=== PATIENT | male | born 1950 | race Caucasian/White ===

== ENCOUNTER 2017-10-18 21:07 | Emergency (ER) | payer MEDICARE, OTHER ==
[2017-10-18] MEDS ORDERED: diazePAM 5 MG TABLET PO STA (21:24)
[2017-10-18] MEDS ORDERED: oxyCOD/ACETAMIN 5 MG/325 MG TABLET PO STA (21:37)
[2017-10-18] MEDS ORDERED: oxyCOD/ACETAMIN 5 MG/325 MG TABLET PO ONE (21:49)
[2017-10-18] MEDS ORDERED: LIDOCAINE PATCH 5% TOP SCH (22:00)
[2017-10-18] MEDS ORDERED: diazePAM 5 MG TABLET PO ONE (22:15)
[2017-10-18] MEDS ORDERED: LIDOCAINE PATCH 5% TOP ONE (22:16)
--- NOTE | 2017-10-18 22:19 | XRAY Preliminary Report ---
Exam: XR RIBS W/PA CHEST RT IMPRESSION: 1. Blunting of the left costophrenic angle representing trace effusion versus pleural thickening. 2. Linear bibasilar atelectasis or scarring. 3. No acute bony abnormality is evident. [facility] SITE ID: [id number]
--- NOTE | 2017-10-18 22:22 | XRAY Report ---
EXAM: RIGHT RIB RADIOGRAPHY EXAM DATE: 10/18/2017 10:01 PM. CLINICAL HISTORY: Posterior rib pain after leaning forward. COMPARISON: Chest radiograph 11/21/2015. TECHNIQUE: 1 view of the chest and 2 views of the ribs. FINDINGS: Bones: A radiopaque marker overlies the right posterior 12th rib. Thoracic spine DISH. No fracture or bone lesion. Lungs: Linear bibasilar opacities representing atelectasis or scarring. No focal consolidation or val dence of edema. Blunting of the left costophrenic angle. No pneumothorax. Mediastinum: Heart size is normal. The aorta is mildly tortuous, as before. Other: None. IMPRESSION: 1. Blunting of the left costophrenic angle representing trace effusion versus pleural thickening. 2. Linear bibasilar atelectasis or scarring. 3. No acute bony abnormality is evident. [facility] Referring Provider Line: [phone] SITE ID: [id number]
--- NOTE | 2017-10-18 22:42 | ED Physician Documentation ---
PD HPI TRUNK INJURY - Stated complaint Stated Complaint: SOA/RIB PX - Chief complaint Chief Complaint: Resp - History obtained from History obtained from: Patient, Family - History of Present Illness Location: Posterior chest, Right chest Type of injury: Other Timing - onset: Today Timing - details: Abrupt onset, Still present Quality: Pain, Spasm Worsened by: Moving, Palpating Associated symtptoms: No: Weakness, Numbness, Tingling, Discoloration Contributing factors: No: Anticoagulated Where injury occured: Home Similar symptoms before: No diagnosis Recently seen: Not recently seen - Additional information Additional information: Patient is a 67 year old male with no significant past medical history who is presenting to the emergency department for right posterior back and rib pain. Patient states that about a week ago he strained his left ribs working with 50lb bags. patient states today he was bending over a fender, reaching our with his right arm when he developed severe, right posterior rib pain. Patient states that he feels like his rib is dislocated. Review of Systems Constitutional: denies: Fever, Chills Eyes: reports: Reviewed and negative Ears: reports: Reviewed and negative Nose: reports: Reviewed and negative Throat: reports: Reviewed and negative Cardiac: reports: Chest pain / pressure. denies: Palpitations, Pedal edema Respiratory: reports: Dyspnea. denies: Cough, Wheezing GI: denies: Nausea, Vomiting : reports: Reviewed and negative Skin: denies: Rash, Lesions, Abrasion (s) Musculoskeletal: reports: Back pain, Extremity pain Neurologic: denies: Generalized weakness, Focal weakness, Numbness Immunocompromised: denies: Immunocompromised PD PAST MEDICAL HISTORY - Past Medical History Respiratory: Sleep apnea - Past Surgical History Past Surgical History: Yes - Present Medications Home Medications: Ambulatory Orders Medication Instructions Recorded Confirmed Diazepam [Valium] 10 mg PO DAILY #14 tablet 10/18/17 Lidocaine Patch 5% [Lidoderm Patch] 1 each TOP DAILY #10 patch 10/18/17 tiZANidine [Zanaflex] 4 mg PO Q8H 10/18/17 10/18/17 - Allergies Allergies/Adverse Reactions: Allergies Allergy/AdvReac Type Severity Reaction Status Date / Time No Known Drug Allergies Allergy Verified 10/18/17 21:14 - Social History Does the pt smoke?: No Smoking Status: Never smoker Does the pt drink ETOH?: No Does the pt have substance abuse?: No - Immunizations Immunizations are current?: Yes Immunizations: TDAP current <10years - POLST Patient has POLST: No PD ED PE NORMAL - Vitals Vital signs reviewed: Yes - General General: Alert and oriented X 3, No acute distress - HEENT HEENT: Atraumatic, PERRL, Moist mucous membranes - Neck Neck: Supple, no meningeal sign, No JVD - Cardiac Cardiac: RRR, No murmur - Respiratory Respiratory: No respiratory distress, Clear bilaterally - Abdomen Abdomen: Soft, Non tender, Non distended - Derm Derm: Normal color, Warm and dry, No rash - Extremities Extremities: No deformity, Normal ROM s pain, No edema - Neuro Neuro: Alert and oriented X 3, No motor deficit, No sensory deficit, Normal speech PD ED PE EXPANDED - Back Back: Soft tissue tenderness (tenderness to palpation of the sub scapulary region, no gross deformity) Results - Vitals Vitals: Vital Signs - 24 hr 10/18/17 10/18/17 10/18/17 21:11 22:09 22:54 Temperature 36.7 C 36.8 C Heart Rate 73 73 84 Respiratory 18 18 21 Rate Blood Pressure 143/88 H 128/86 H 123/72 O2 Saturation 98 100 95 Oxygen O2 Source Room air - EKG (time done) 2112 Rate: Rate (enter#) (71) Rhythm: NSR [place]: Normal Intervals: Normal [place] QRS: Normal Ischemia: Normal ST segments Compare to prior EKG: Old EKG unavailable Computer interpretation: Agree with computer - Rads (name of study) chest Radiology: Final report received (bibasilar atelectasis, no bony abnormality) PD MEDICAL DECISION MAKING - ED course Complexity details: reviewed old records, reviewed results, re-evaluated patient , considered differential, d/w patient, d/w family ED course: Patient was seen and examined at bedside. ekg was performed in triage and was normal sinus. imaging was ordered. patient was treated with valium, lidoderm and a percocet. Patient was sent for imaging. When patient returned from imaging the results were reviewed. there was no acute abnormalities. patient' s symptoms were likely msk in nature. Patient and family were made aware of the findings and were stable for discharge with outpatient follow up. Departure - Departure Disposition: 01 Home, Self Care Clinical Impression: Muscle strain of chest wall Condition: Good Instructions: ED Sprain Thoracic Spine Follow-Up: LONNIE JENKINS [Primary Care Provider] - Prescriptions: Diazepam [Valium] 10 mg PO DAILY #14 tablet Lidocaine Patch 5% [Lidoderm Patch] 1 each TOP DAILY #10 patch Comments: Your diagnostics today were within normal limits. there were no major abnormalities on your ekg or chest x-ray. You should continue with the pain management and make sure you take deep breaths. You should followup with your doctor early next week if your symptoms persist. You may return to the emrgency department at any time for new, worsening or uncontrollable symptoms. Discharge Date/Time: 10/18/17 23:02
[2017-10-18 22:55] VITALS: BP 123/72
[2017-10-18] MEDS ORDERED: oxyCODONE/ACET 5/325 Prepack 4 PO STA (22:59)
[2017-10-18] MEDS ORDERED: oxyCODONE/ACET 5/325 Prepack 4 PO ONE (23:05)
== END 2017-10-18 23:02 | disposition home or self-care (01) ==
LOC: ED 21:07
DX: S29.011A Strain of muscle and tendon of front wall of thorax, initial encounter (principal); X50.0XXA Overexertion from strenuous movement or load, initial encounter
CPT/HCPCS: 71101; 93005; 99283; A9270

== ENCOUNTER 2017-10-21 13:11 | Outpatient (CLI) | payer MEDICARE, OTHER | END 2017-10-21 13:12 | disposition home or self-care (01) | LOC: SC 13:11 | PROVIDERS: ATTEND Nurse Practitioner Family | DX: G47.33 Obstructive sleep apnea (adult) (pediatric) (principal) | CPT/HCPCS: 99214; G0463; 99212 ==

== ENCOUNTER 2017-12-22 09:45 | Outpatient (CLI) | payer MEDICARE, OTHER | END 2017-12-22 09:46 | disposition home or self-care (01) | LOC: SC 09:45 | PROVIDERS: ATTEND Nurse Practitioner Family | DX: G47.33 Obstructive sleep apnea (adult) (pediatric) (principal) | CPT/HCPCS: 99214; G0463; 99212 ==

== ENCOUNTER 2019-01-12 14:28 | Outpatient (CLI) | payer MEDICARE, OTHER | END 2019-01-12 14:29 | disposition home or self-care (01) | LOC: SC 14:28 | PROVIDERS: ATTEND Nurse Practitioner Family | DX: G47.33 Obstructive sleep apnea (adult) (pediatric) (principal) | CPT/HCPCS: 99214; G0463; 99212 ==

== ENCOUNTER 2019-03-30 15:03 | Outpatient (CLI) | payer MEDICARE, OTHER | END 2019-03-30 15:04 | disposition home or self-care (01) | LOC: SC 15:03 | PROVIDERS: ATTEND Nurse Practitioner Family | DX: G47.33 Obstructive sleep apnea (adult) (pediatric) (principal) | CPT/HCPCS: 99214; G0463; 99212 ==

== ENCOUNTER 2019-05-16 08:43 | Outpatient (CLI) | payer MEDICARE, OTHER | END 2019-05-16 08:44 | disposition home or self-care (01) | LOC: SC 08:43 | PROVIDERS: ATTEND Nurse Practitioner Family | DX: G47.33 Obstructive sleep apnea (adult) (pediatric) (principal) | CPT/HCPCS: 99214; G0463; 99212 ==

== ENCOUNTER 2019-07-18 08:38 | Outpatient (CLI) | payer MEDICARE, OTHER ==
[2019-07-18 09:43] VITALS: BP 116/60
--- NOTE | 2019-07-18 09:43 | SLEEP CARE CONSULTATION ---
Information from patient questionnaire entered by Nasreen Alvarado. I have reviewed and concur with the information entered by Nasreen Alvarado. This document represents the service I personally performed and the decisions made by me, Krystal Raymond, RN, MSN, [employer]. History of Present Illness Previous diagnosis: Moderate, Obstructive Sleep Apnea-Hypopnea Syndrome AHI: 28.2 Reason for CPAP/BiPAP follow up: other (2 month) Accompanied by: Spouse Equipment type: CPAP Equipment obtained from: [facility] Mask style: Nasal (Sleepweaver) Backup mask available: Yes Last cushion change: a month ago HPI additional information: The pressure reduction reduced aerophagia that seems to happen now only 2-3 times a month. He has also noted improved restfulness that sustains through the evening now and not falling asleep on couch. His nasal congestion is better but is not using the saline nasal spray prior to CPAP unless symptomatic which is a couple times a week. The saline nasal spray does seem to reduce nasal congestion and aerophagia symptoms. He has noted less mask leaks with washing mask more often. CPAP Compliance Data - Data Reviewed with Patient Average duration of nightly device use: 8.5 Compliance rate %: 100 (60 days) Current pressure setting (cmH2O): 14-16 Humidity settin Heated hose settin Average residual AHI: 3.3 Average large leak: 2 hrs 11 mins Subjective Patient concerns: reports: aerophagia (less a few times a month), nasal congestion (a few times a week), other (headache - sinus headache that is relieved after up a few hours and blowing his nose. ). denies: mask discomfort, air blowing in eyes, mask leak noise, condensation in mask/hose Observed to snore while using device: No Current pressure setting perceived as: comfortable On therapy, patient: reports: sleeping better, awakening more refreshed, being more awake and alert during the day, more rested overall. denies: drowsiness while driving Initial [place] Sleepiness Scale score: 1 Current [place] Sleepiness Scale score: 1 Allergies and Home Medications Known drug allergies: No Home medication list reviewed: Yes (none) Review of Systems Review of systems same as previous: Yes Physical Exam Blood Pressure: 116/60 Cuff size: long Heart Rate: 64 O2 Saturation: 96 Height: 5 ft 11 in Weight (kg): 205 lb 6.4 oz Weight change since last visit: lost 3 pounds Body Mass Index: 28.6 BMI Classification: Overweight Impression and Plan 1. Obstructive Sleep Apnea-Hypopnea Syndrome, moderate, with good treatment compliance and good apnea control. On CPAP therapy, the patient has better sleep quality and is more rested overall. The pressure reduction reduced residual AHI from 5.5 to 3.3. He has noted improved restfulness since pressure change sustaining through evening. To reduce aerophagia symptoms, I advised him to use his saline nasal spray nightly prior to CPAP as it seems to reduce aerophagia. I will also reduce his autoCPAP pressure slightly to [id number]. He is to contact me if the pressure change is uncomfortable. He is also advised to use the ramp if needed. I also encouraged him to continue washing his mask regularly to reduce mask leaks which reduce residual AHI and change mask every 3 months as shown on supply replacement schedule given. He is encouraged to back to [facility] and use the CPAP to show the whining noise in use not just demonstration of device working as before. His drooling has reduced with increase in humidity. Thus he is going to try a slightly higher humidity to see if any better. Patient's apnea severity and rationale for treatment to reduce apnea, improve sleep quality and reduce cardiovascular and cerebrovascular events was reviewed. I also reviewed the benefit of consistent device use of CPAP for migraines. * Change CPAP pressure to 14-15 cmH2O * Saline nasal spray prior to CPAP nightly. * Increase humidity * Follow up with [facility] re CPAP whining noise. * Notify me if snoring with mask or feeling that the pressure is too much or too little * Attempt to lose weight * Return for follow up in 1 year , or sooner if concerns arise I spent 100% of this 35 minute visit face to face with the patient with greater than 50% of this was spent time counseling the patient and coordination of care.
== END 2019-07-18 08:39 | disposition home or self-care (01) ==
LOC: SC 08:38
PROVIDERS: ATTEND Nurse Practitioner Family
DX: G47.33 Obstructive sleep apnea (adult) (pediatric) (principal)
CPT/HCPCS: 99214; G0463; 99212

== ENCOUNTER 2020-07-23 07:51 | Outpatient (CLI) | payer MEDICARE, OTHER ==
--- NOTE | 2020-07-23 08:52 | SLEEP CARE CONSULTATION ---
Information from patient questionnaire entered by Almaz Jimenez. I have reviewed and concur with the information entered by Almaz Jimenez. This document represents the service I personally performed and the decisions made by , Nichole Byrne ARNP. History of Present Illness Service Date and Time: 07/23/2020 0751 Previous diagnosis: Moderate, Obstructive Sleep Apnea-Hypopnea Syndrome AHI: 28.2 Reason for follow up: annual Equipment type: CPAP Equipment obtained from: Other ([facility]; getting supplies as needed) Mask style: Full face (sleepweaver, cloth full mask) Backup mask available: Yes (old mask) Last cushion change: 1 month to 6 weeks Prior sleep studies: Yes [facility] and [facility] Type of Sleep Study: Polysomnography HPI additional information: LUCINA PRABHAKAR was diagnosed to have moderate, AHI 28.2, obstructive sleep apnea-hypopnea syndrome and returned today with spouse for CPAP therapy annual follow-up. CPAP Compliance Data - Data Reviewed with Patient Average duration of nightly device use: 7 hours 59 minutes Compliance rate %: 100 Current pressure setting (cmH2O): 14-15 Humidity settin Average residual AHI: 2.2 Average large leak: 2 hours 19 minutes 26 seconds Subjective Patient concerns: reports: nasal congestion (over last month; doesn't affect machine use), dry mouth, nose, throat (2-3 times a month, not a problem). denies: aerophagia, mask discomfort, air blowing in eyes, mask leak noise, condensation in mask/hose, epistaxis, other Observed to snore while using device: No Current pressure setting perceived as: comfortable On therapy, patient: reports: sleeping better, awakening more refreshed, being more awake and alert during the day, more rested overall. denies: drowsiness while driving Initial [place] Sleepiness Scale score: 1 Allergies and Home Medications Drug allergies reviewed: Yes (NKDA) Home medication list reviewed: Yes (No changes) Review of Systems Review of systems same as previous: Yes (No changes) Physical Exam Heart Rate: 57 O2 Saturation: 98 Height: 5 ft 11 in Weight: 205 lb Body Mass Index: 28.5 BMI Classification: Overweight Nasal exam: positive: erythema Impression and Plan 1. Obstructive Sleep Apnea-Hypopnea Syndrome, moderate, with good treatment compliance and good apnea control. On CPAP therapy, the patient has better sleep quality and is more rested overall. Patient has large air leaks but he does have a full face sheth and he states it is hard to get a good seal on his face. He also uses a cloth mask and feels that an increase in pressure can help the mask seal better and reduce air leakage. He has good AHI at 2.2. I will increase his pressure range to 14-16 cm H2O to help with the seal. I reviewed with patient to let me know if pressure feel too high, too little or he starts swallowing air. Patient's apnea severity and rationale for treatment to reduce apnea, improve sleep quality and reduce cardiovascular and cerebrovascular events was reviewed. I also reviewed the benefit of consistent device use of CPAP for his migraines. * Change auto CPAP pressure at 14-16 cmH2O * Notify me if snoring with mask or feeling that the pressure is too much or too little * Attempt to lose weight * Call this office if any problems using CPAP * Return for follow up in 1 year, or sooner if concerns arise Visit Type: In Office Time Spent with Patient (minutes): 20 Provider Statement: I spent 100% of the Face to Face Visit with the patient with greater than 50% spent counseling the patient and coordination of care.
== END 2020-07-23 07:52 | disposition home or self-care (01) ==
LOC: SC 07:51
PROVIDERS: ATTEND Nurse Practitioner Family
DX: G47.33 Obstructive sleep apnea (adult) (pediatric) (principal); E66.3 Overweight; Z68.28 Body mass index [BMI] 28.0-28.9, adult
CPT/HCPCS: 99213; G0463; 99212

== ENCOUNTER 2020-12-25 08:00 | Observation (INO) | payer MEDICARE, OTHER ==
[2020-12-25] MEDS ORDERED: SODIUM CHLORIDE 0.9% 1,000 ML IV STA (08:20)
--- NOTE | 2020-12-25 08:34 | ED Physician Documentation ---
History of Present Illness - Stated complaint Stated Complaint: DIZZY - Chief complaint Chief Complaint: Neuro - History obtained from History obtained from: Patient - Additonal information Additional information: 70-year-old man with past medical history of hyperlipidemia, former smoker, presents with 3 discrete presyncopal episodes this morning and one episode while walking of syncope in which he fell into a duran without head trauma. Patient states that he woke up feeling normal and went down to the kitchen and was standing there and felt lightheaded. It went away but then came back 2 more t imes and then as he was crossing his yard he became lightheaded again to the point where he collapsed onto a duran. Denies injury. He was feeling normal yesterday. Of note, he called a nurse line and then was told to come to the emergency room but decided to watch television with his and follow-up with his primary doctor but then experienced left eye blurring of vision lasting for 4-5 minutes and then recurring. This prompted them to drive to the ED. He again noticed peripheral vision loss on the way here that then resolved. denies CP, fever, sob, other neuro deficits. Review of Systems Ten Systems: 10 systems reviewed and negative Constitutional: denies: Fever, Chills Eyes: reports: Loss of vision, Decreased vision Ears: denies: Loss of hearing Cardiac: denies: Chest pain / pressure Respiratory: denies: Dyspnea GI: denies: Vomiting Neurologic: reports: Syncope, LOC (lightheadedness) PD PAST MEDICAL HISTORY - Past Medical History Respiratory: Sleep apnea - Past Surgical History Past Surgical History: Yes - Present Medications Home Medications: Ambulatory Orders Medication Instructions Recorded Confirmed No Known Home Medications 12/25/20 12/25/20 - Allergies Allergies/Adverse Reactions: Allergies Allergy/AdvReac Type Severity Reaction Status Date / Time No Known Drug Allergies Allergy Verified 10/18/17 21:14 - Social History Does the pt smoke?: No Smoking Status: Never smoker Does the pt drink ETOH?: No Does the pt have substance abuse?: No - Immunizations Immunizations are current?: Yes Immunizations: TDAP current <10years - POLST Patient has POLST: No PD ED PE NORMAL - Vitals Vital signs reviewed: Yes - General General: Alert and oriented X 3, No acute distress, Well developed/nourished - HEENT HEENT: Atraumatic, PERRL, EOMI, Moist mucous membranes, Pharynx benign - Neck Neck: Supple, no meningeal sign - Cardiac Cardiac: RRR - Respiratory Respiratory: No respiratory distress, Clear bilaterally - Abdomen Abdomen: Non tender, Non distended - Male Male : Deferred - Rectal Rectal: Deferred - Back Back: No spinal TTP - Derm Derm: Normal color - Extremities Extremities: No deformity, No edema - Neuro Neuro: Alert and oriented X 3, cardiac exercise physiologist 2-12 intact, No motor deficit, No sensory deficit - Psych Psych: Normal mood, Normal affect Results - Vitals Vitals: Vital Signs - 24 hr 12/25/20 12/25/20 12/25/20 08:11 08:52 08:53 Temperature 36.3 C L 36.6 C Heart Rate 72 65 Heart Rate [ 69 Sitting] Heart Rate [ 68 Standing] Heart Rate [ 68 Supine] Respiratory 18 12 Rate Blood Pressure 131/72 H 128/117 H Blood Pressure 139/90 H [Sitting] Blood Pressure 120/70 [Standing] Blood Pressure 128/117 H [Supine] O2 Saturation 99 100 12/25/20 09:35 Temperature Heart Rate 65 Heart Rate [ Sitting] Heart Rate [ Standing] Heart Rate [ Supine] Respiratory 18 Rate Blood Pressure 136/83 H Blood Pressure [Sitting] Blood Pressure [Standing] Blood Pressure [Supine] O2 Saturation 99 Oxygen O2 Source Room air - EKG (time done) 0809 Rate: Rate (enter#) (69) Rhythm: NSR [place]: Normal Intervals: Normal IN QRS: Normal Ischemia: Normal ST segments - Labs Labs: Laboratory Tests 12/25/20 12/25/20 12/25/20 08:25 08:25 08:25 WBC 6.0 RBC 4.81 Hgb 14.8 Hct 44.7 MCV 92.9 MCH 30.8 MCHC 33.1 RDW 13.2 Plt Count 192 MPV 10.0 Neut # (Auto) 4.4 Lymph # (Auto) 1.0 L [place] # (Auto) 0.4 Eos # (Auto) 0.1 Baso # (Auto) 0.0 Absolute Nucleated RBC 0.00 Nucleated RBC % 0.0 Sodium 140 Potassium 4.3 Chloride 104 Carbon Dioxide 24 Anion Gap 12.0 BUN 21 H Creatinine 0.9 Estimated GFR (MDRD) 83 L Glucose 90 Calcium 9.4 Total Bilirubin 0.5 AST 21 ALT 18 Alkaline Phosphatase 70 Troponin I High Sens 2.4 Total Protein 6.5 L Albumin 3.9 Globulin 2.6 Albumin/Globulin Ratio 1.5 Lipase 60 H PD MEDICAL DECISION MAKING - ED course ED course: 70-year-old man presents with symptoms suspicious for TIA. Stroke code not called given resolution of symptoms prior to arrival in the emergency room. Patient is not a TPA candidate at this time with NIHSS of 0. Reevaluated patient and discussed that he had some mild orthostasis. Low suspicion for stroke/TIA etiology at this time given that the patient is now describing his vision changes as more of a "double vision" and "loss of peripheral vision", which could be attributed to the syncope/presyncope. asymptomatic at present. Patient hasn't had an echo in over ten years and would like to come in for further testing. d/w hospitalist who is agreeable to o bservation for syncope. Departure - Departure Disposition: ED Place in Observation Clinical Impression: Syncope, Lightheadedness, Vision changes Condition: Good
[2020-12-25 08:37] LABS: BASOPHILS % (AUTO) 0.7 %; EOSINOPHILS # (AUTO) 0.1 10^3/uL (0.0-0.7); EOSINOPHILS % (AUTO) 1.7 %; HGB - HEMOGLOBIN 14.8 g/dL (14.0-18.0); LYMPHOCYTES % (AUTO) 16.7 %; MEAN CORPUSCULAR HEMOGLOBIN 30.8 pg (27.0-31.0); MEAN CORPUSCULAR HGB CONC 33.1 g/dL (32.0-36.0); MEAN CORPUSCULAR VOLUME 92.9 fL (80.0-94.0); MONOCYTES # (AUTO) 0.4 10^3/uL (0.0-1.0); MONOCYTES % (AUTO) 6.8 %; NEUTROPHILS # (AUTO) 4.4 10^3/uL (1.5-6.6); NEUTROPHILS % (AUTO) 73.1 %; PLT - PLATELET COUNT 192 10^3/uL (130-450); RED BLOOD COUNT 4.81 10^6/uL (4.70-6.10); RED CELL DISTRIBUTION WIDTH 13.2 % (12.0-15.0)
--- NOTE | 2020-12-25 08:51 | CT Report ---
PROCEDURE: HEAD WO INDICATIONS: dizziness TECHNIQUE: Noncontrast 4.5 mm thick angled axial sections acquired from the foramen magnum to the vertex. For r adiation dose reduction, the following was used: automated exposure control, adjustment of mA and/or kV according to patient size. COMPARISON: None. FINDINGS: Image quality: Excellent. CSF spaces: Basal cisterns are patent. No extra-axial fluid collections. Ventricles are normal in size and shape. Brain: No midline shift. No intracranial masses or hemorrhage. Hussein-white matter interface is norm al. Skull and face: Calvarium and visualized facial bones are intact, without suspicious lesions. Sinuses: Visualized sinuses and mastoids are clear. IMPRESSION: Unremarkable intracranial study for age. Reviewed by: Jesse Cortes MD on 12/25/2020 7:50 AM [facility] Approved by: Jesse Cortes MD on 12/25/2020 7:50 AM [facility] Station ID: [id number]
[2020-12-25 08:52] LABS: ALBUMIN 3.9 g/dL (3.2-5.5); ALBUMIN/GLOBULIN RATIO 1.5 (1.0-2.2); BILIRUBIN,TOTAL 0.5 mg/dL (0.2-1.0); CALCIUM 9.4 mg/dL (8.5-10.3); CREATININE 0.9 mg/dL (0.6-1.2); TOTAL PROTEIN 6.5 g/dL (6.7-8.2)
--- NOTE | 2020-12-25 09:07 | XRAY Report ---
PROCEDURE: Chest 1 View X-Ray INDICATIONS: Chest Pain TECHNIQUE: One view of the chest was acquired. COMPARISON: 11/21/2015 FINDINGS: Surgical changes and devices: None. Lungs and pleura: No pleural effusions or pneumothorax. Lungs are clear. Mediastinum: Mediastinal contours appear normal. Heart size is normal. Bones and chest wall: No suspicious bony lesions. Overlying soft tissues appear unremarkable. IMPRESSION: No acute disease. Reviewed by: Abdelrahman Sanchez MD on 12/25/2020 9:05 AM [facility] Approved by: Abdelrahman Sanchez MD on 12/25/2020 9:05 AM [facility] Station ID: [id number]
[2020-12-25] MEDS ORDERED: SODIUM CHLORIDE FLUSH 0.9% 10 ML SYRINGE IVP PRN (10:32)
[2020-12-25] MEDS ORDERED: ACETAMINOPHEN 325 MG TABLET PO PRN (10:32)
[2020-12-25] MEDS ORDERED: ONDANSETRON 4 MG/2 ML VIAL IVP PRN (10:32)
--- NOTE | 2020-12-25 10:40 | HISTORY & PHYSICAL EXAMINATION ---
Chief Complaint - Chief Complaint Chief Complaint: syncope History of Present Illness - Admitted From Admitted From:: ER - History Obtained From Records Reviewed: [facility] History obtained from: pt Exam Limitations: no - History of Present Illness HPI Comment/Other: 70-year-old man with past medical history of Sleep apnea, former smoker, who presents ER complain of pre-syncope in the morning. Patient report when He feed his cat before breakfast as routine, he report he had 4 times presyncope in 15 minutes. Patient reported it was not dizziness, he did loss consciousness. One-time he fall in the dur[place] but he reported he has no injury. He denies any chest pain. He reported he did not take any medications. He denies medical history such as Diabetic, hypertension or other medical history, Denies history of seizure. He denies headache, Unilateral weakness or focal neuro deficits. CAT scan of the head and chest x-ray reveal unremarkable. Routine laboratory testing show unremarkable except slightly elevated BUN. Troponin test is negative. Discussed the care goal with the patient, patient requests full code History - Past Medical History Respiratory: reports: Sleep apnea MRSA Hx?: No Other Past Medical History: Skin issues - Past Surgical History General: reports: Colonoscopy - Family & Social History Family History: Mother: , Father: Family History Comment/Other: Patient report his father at 92 yrs old with aging relative. He is unknown his mother medical conditions. Social History Notes: Patient report he quit smoking about 40 years ago, He denies alcohol or drug Issues. He will report he is living with his in [facility] - POLST Patient has POLST: No Meds/Allgy - Home Medications Home Medications: Ambulatory Orders Medication Instructions Recorded Confirmed No Known Home Medications 12/25/20 12/25/20 - Allergies Allergies/Adverse Reactions: Allergies Allergy/AdvReac Type Severity Reaction Status Date / Time No Known Drug Allergies Allergy Verified 10/18/17 21:14 Review of Systems - Constitutional Constitutional: denies: Fatigue, Fever, Chills, Weakness, Poor appetite, Night sweats - Eyes Eyes: reports: Blurred vision. denies: Pain, Field loss, Vision loss - Ears, Nose & Throat Ears, Nose & Throat: denies: Ear pain, Vertigo, Nosebleeds, Nasal congestion, Mouth lesions - Cardiovascular Cariovascular: reports: Syncope. denies: Irregular heart rate, Palpitations, Chest pain, Edema, Lightheadedness, Exertional dyspnea, Decr. exercise tolerance - Respiratory Respiratory: denies: Cough, Sputum production, Wheezing, Snoring, Hemoptysis, Orthopnea, SOB at rest, SOB with exertion - Gastrointestinal Gastrointestinal: denies: Abdominal pain, Abdominal distention, Diarrhea, Rectal bleeding, Black stools, Bloody stools, Nausea, Vomiting, Unruly blood emesis - Genitourinary Genitourinary: denies: Dysuria, Urgency, Incontinence - Musculoskeletal Musculoskeletal: denies: Muscle pain, Muscle aches, Limited range of motion - Integumentary Integumentary: denies: Rash, Lesions, Lumps - Psychiatric Psychiatric: denies: Depression, Suicidal, Delusions - Endocrine Endocrine: denies: Polyuria, Polydypsia, Polyphagia - Hematologic/Lymphatic Hematologic/Lymphatic: denies: Anemia, Petechiae, Blood clots Prior Level of Functionality: Patient is independent in the home Exam - Vital Signs Vital Signs: Vital Signs x48h Temp Pulse Pulse Pulse Pulse Resp BP 12/25/20 09:35 65 18 136/83 H 12/25/20 08:53 69 68 68 12/25/20 08:52 36.6 C 65 12 128/117 H 12/25/20 08:11 36.3 C L 72 18 131/72 H BP BP BP Pulse Ox 12/25/20 09:35 99 12/25/20 08:53 139/90 H 120/70 128/117 H 12/25/20 08:52 100 12/25/20 08:11 99 - Physical Exam General Appearance: positive: No acute distress, Alert. negative: Lethargic Eyes Bilateral: positive: Normal inspection, PERRL, No lid inflammation ENT: positive: ENT inspection nml, Pharynx nml. negative: Purulent nasal drainage Neck: positive: Nml inspection, Trachea midline. negative: Thyromegaly, Trach eal deviation Respiratory: positive: Chest non-tender, No respiratory distress, Breath sounds nml. negative: Wheezes, Rales, Rhonchi Cardiovascular: positive: Regular rate & rhythm, No murmur. negative: Tachycardia, Bradycardia, Systolic murmur, Diastolic murmur Peripheral Pulses: positive: 2+ Abdomen: positive: Non-tender, Nml bowel sounds, No distention. negative: Tenderness, Guarding, Rebound Back: positive: Nml inspection. negative: CVA tenderness (R), CVA tenderness (L) Skin: positive: Color nml, No rash, Warm, Dry. negative: Cyanosis, Diaphoresis, Pallor Extremities: positive: Non-tender, Full ROM, Nml appearance. negative: Calf tenderness Neurologic/Psychiatric: positive: Oriented x3, Motor nml, Sensation nml, Mood/affect nml. negative: Weakness, Sensory loss, Facial droop, Slurred/abnml speech, Depressed mood/affect Sepsis Event Note (H) - Evaluation Current Stage of Sepsis: Ruled out Conclusion/Plan - Problem List (1) Syncope Conclusion/Plan: Patient report he lost consciousness when he had a fall and syncope. Patient reported he had 4 times syncope in 15 minutes. He denies chest pain, Palpitation, fever, shortness breathing, headache, focal neuro deficits. Troponin test is negative, EKG show no significant any changed compared with the 2017 EKG. Patient denies history of seizure or other medical history. Patient show mild dehydration. Patient did show mild orthostatic hypotension, after the patient had hydration, patient's orthostatic hypotension improved. We will order echo, continue quality assurance monitor patient heart rhythm (2) Dehydration Conclusion/Plan: Patient had slightly elevated BUN, clinically patient show some dehydration. We will give patient intravenous IV fluids, we will continue seed laboratory assistant, And vital signs monitor - Lab Results Fish Bones: 12/25/20 08:25 12/25/20 08:25 Core Measures - Anticipated LOS I expect patient to be DC'd or transferred within 96 hours.: Yes - Stroke - Rehab Assessment Rehab services assessment to be ordered?: Yes - AMI - Statin at Admit Aspirin Prescribed on Admit: Yes
[2020-12-25] MEDS: SODIUM CHLORIDE 0.9% 1,000 ML IV SCH ×2 (12:09→21:49)
[2020-12-25 14:29] LABS: C. PNEUMONIAE- RESP PCR PANEL NOT DETECTED
--- NOTE | 2020-12-25 17:14 | Ultrasound Report ---
PROCEDURE: Carotid Doppler Complete INDICATIONS: vision change, possilbe TIA TECHNIQUE: Color and pulse Doppler interrogation was performed of both carotid systems, with image documentation and velocity measurements. COMPARISON: None. FINDINGS: Right side: Brachial blood pressure: 136/72 mm Hg. Common carotid artery peak systolic velocity: 147 cm/sec. Internal carotid artery peak systolic velocity: 125 cm/sec. Internal carotid artery end diastolic velocity: 24 cm/sec. External carotid artery peak systolic velocity: 179 cm/sec. ICA/CCA peak systolic ratio: 0.9 . Hussein scale imaging description: Mild to moderate plaque at the bifurcation. Percent internal carotid artery stenosis: Borderline less than 50% stenosis . Vertebral artery: Flow direction is antegrade. Left side: Brachial blood pressure: 142/64 mm Hg. Common carotid artery peak systolic velocity: 131 cm/sec. Internal carotid artery peak systolic velocity: 84 cm/sec. Internal carotid artery end diastolic velocity: 21 cm/sec. External carotid artery peak systolic velocity: 91 cm/sec. ICA/CCA peak systolic ratio: 0.6 . Hussein scale imaging description: Mild to moderate plaque at the bifurcation Percent internal carotid artery stenosis: No hemodynamically significant stenosis . Vertebral artery: Flow direction is antegrade. IMPRESSION: Borderline less than 50% stenosis of the right internal carotid artery. The estimate of stenosis included in the report of the imaging study was calculated using the NASCET method Reviewed by: Jailene Adams MD on 12/25/2020 5:12 PM PST Approved by: Jailene Adams MD on 12/25/2020 5:12 PM PST Station ID: [id number]
[2020-12-25] MEDS: SODIUM CHLORIDE FLUSH 0.9% 10 ML SYRINGE IVP SCH (17:47)
--- NOTE | 2020-12-25 18:50 | PHARMACY PROGRESS NOTE ---
- Best Possible Medication History Admit Date and Time: 12/25/20 1032 Processed by: Pharmacy Medication History completed: Yes Patient Interview: Pt interview ONLY source (interviewed by Chyna 12/25, no home meds, uses Thymol 4% solution topically on toe nails) As the person ultimately responsible for medication therapy, providers are able to order a medication from an existing home medication list in [facility] via the "Reconcile Routine" prior to Confirmation of that medication by manager technical support. Such practice is discouraged except when the physician, in their clinical judgment, deems that a medical need exists for a medication without regard to previous use.
[2020-12-25] MEDS: FAMOTIDINE 20 MG TABLET PO SCH (20:28)
[2020-12-26] MEDS: SODIUM CHLORIDE FLUSH 0.9% 10 ML SYRINGE IVP SCH ×2 (01:51→08:51)
[2020-12-26 05:39] LABS: BASOPHILS # (AUTO) 0.1 10^3/uL (0.0-0.1); BASOPHILS % (AUTO) 0.9 %; EOSINOPHILS # (AUTO) 0.1 10^3/uL (0.0-0.7); EOSINOPHILS % (AUTO) 2.5 %; HGB - HEMOGLOBIN 13.8 g/dL (14.0-18.0); LYMPHOCYTES # (AUTO) 1.6 10^3/uL (1.5-3.5); LYMPHOCYTES % (AUTO) 28.7 %; MEAN CORPUSCULAR HEMOGLOBIN 31.1 pg (27.0-31.0); MEAN CORPUSCULAR HGB CONC 32.6 g/dL (32.0-36.0); MEAN CORPUSCULAR VOLUME 95.3 fL (80.0-94.0); MONOCYTES # (AUTO) 0.4 10^3/uL (0.0-1.0); MONOCYTES % (AUTO) 7.1 %; NEUTROPHILS # (AUTO) 3.4 10^3/uL (1.5-6.6); NEUTROPHILS % (AUTO) 59.4 %; PLT - PLATELET COUNT 186 10^3/uL (130-450); RED BLOOD COUNT 4.44 10^6/uL (4.70-6.10); RED CELL DISTRIBUTION WIDTH 13.2 % (12.0-15.0); WHITE BLOOD COUNT 5.7 x10^3/uL (4.8-10.8)
[2020-12-26 06:04] LABS: CALCIUM 8.7 mg/dL (8.5-10.3); CREATININE 0.8 mg/dL (0.6-1.2)
[2020-12-26] MEDS: FAMOTIDINE 20 MG TABLET PO SCH (08:50)
[2020-12-26] MEDS: SODIUM CHLORIDE 0.9% 1,000 ML IV SCH (08:50)
[2020-12-26] MEDS ORDERED: ENOXAPARIN 40 MG/0.4 ML SYRINGE SUBQ SCH (09:00)
[2020-12-26 11:41] VITALS: BP 122/65
--- NOTE | 2020-12-26 11:47 | Discharge Plan ---
Discharge Plan Problem Reviewed?: Yes Disposition: Home, Self Care Condition: Stable Diet: Regular Activity Restrictions: Activity as Tolerated Shower Restrictions: No (fall precaution) Instruction Topics: Syncope, Syncope Tx Prevent, Syncope Causes, Dehydration, Dehydration Rehydration [facility] Concerns: syncope Plan of Treatment: You were found to have dehydration, your orthostatic hypotension was resolved after hydration, your other studies were unremarkable, you have no syncope in the hospital. You may keep hydration, precaution and prevention of fall and syncope, and followup with your PCP in one week. Care Goals: stabilization and improvement of your medical conditions Assessment: Discussed the care plan with you, answer your questions, you understood. Additional Instructions or Follow Up instructions: you may followup with your PCP in one week. Should your symptoms return or worsen, you may present to ER or call 911 for help No Smoking: If you smoke, Please STOP! Call for help. Follow-up with: Jon Boss MD [Primary Care Provider] -
--- NOTE | 2020-12-26 11:54 | DISCHARGE SUMMARY ---
Discharge Summary Admit Date: 12/25/20 Discharge Date: 12/26/20 Discharging Provider: Ba Jarvis Primary Care Provider: Dr.Dan Boss Condition at Discharge: Stable Discharge Disposition: 01 Home, Self Care Discharge Facility Name: home - DIAGNOSES Discharge Diagnoses with Status of Each Condition: (1) Syncope Patient has no syncope in the hospital after the patient had intravenous IV fluids for his dehydration, And his orthostatic hypotension was resolved. Patient's study including EKG, troponin, tele monitor to pt, echo, US of carotid all are unremarkable. It is likely caused orthostatic hypotension secondary to patient's dehydration. Patient was Educated how to prevention of fall, Safely precaution to syncope, Follow-up his PCP in 1 week and recheck with pt. (2) Dehydration resolved. (3)orthostatic hypotension resolved. - HPI History of Present Illness: 70-year-old man with past medical history of Sleep apnea, former smoker, who presents ER complain of pre-syncope in the morning. Patient report when He feed his cat before breakfast as routine, he report he had 4 times presyncope in 15 minutes. Patient reported it was not dizziness, he did loss consciousness. One-time he fall in the dur[place] but he reported he has no injury. He denies any chest pain. He reported he did not take any medications. He denies medical history such as Diabetic, hypertension or other medical history, Denies history of seizure. He denies headache, Unilateral weakness or focal neuro deficits. CAT scan of the head and chest x-ray reveal unremarkable. Routine laboratory testing show unremarkable except slightly elevated BUN. Troponin test is negative. Discussed the care goal with the patient, patient requests full code - HOSPITAL COURSE Hospital Course: Patient was admitted for syncope. Patient had troponin, EKG, echo, bus driver/monitor, ultrasound of the carotid study, all show unremarkable. Patient did sh ow some dehydration in the admission and show orthostatic hypotension. Patient was given intravenous IV fluids. Patient's dehydration was resolved, patient's orthostatic hypotension was resolved as well. Patient has no syncope in the hospital. Patient was discharged as hemodynamic stable condition - ALLERGIES Allergies/Adverse Reactions: Allergies Allergy/AdvReac Type Severity Reaction Status Date / Time No Known Drug Allergies Allergy Verified 10/18/17 21:14 - MEDICATIONS Home Medications: Ambulatory Orders Medication Instructions Recorded Confirmed No Known Home Medications 12/25/20 12/25/20 - PHYSICAL EXAM AT DISCHARGE General Appearance: positive: No acute distress, Alert. negative: Lethargic Eyes Bilateral: positive: Normal inspection, PERRL, No lid inflammation ENT: positive: ENT inspection nml, No signs of dehydration. negative: Purulent nasal drainage Neck: positive: Nml inspection, Trachea midline. negative: Thyromegaly, Tracheal deviation Respiratory: positive: Chest non-tender, No respiratory distress, Breath sounds nml. negative: Wheezes, Rales, Rhonchi Cardiovascular: positive: Regular rate & rhythm, No murmur. negative: Tachycardia, Bradycardia, Systolic murmur, Diastolic murmur Peripheral Pulses: positive: 2+ Abdomen: positive: Non-tender, Nml bowel sounds, No distention. negative: Tenderness, Guarding, Rebound Back: positive: Nml inspection Skin: positive: Color nml, Warm, Dry. negative: Cyanosis, Diaphoresis, Pallor Extremities: positive: Non-tender, Full ROM, Nml appearance. negative: Calf tenderness, Carolina's sign/cords Neurologic/Psychiatric: positive: Oriented x3, Motor nml, Sensation nml, Mood/affect nml. negative: Weakness, Sensory loss, Facial droop, Slurred/abnml speech, Depressed mood/affect - LABS Result Diagrams: 12/26/20 05:51 12/26/20 05:51 - SEPSIS Current Stage of Sepsis: Ruled out - FOLLOW UP Follow Up: You were found to have dehydration, your orthostatic hypotension was resolved after hydration, your other studies were unremarkable, you have no syncope in the hospital. You may keep hydration, precaution and prevention of fall and syncope, and followup with your PCP in one week. you may followup with your PCP in one week. Should your symptoms return or worsen, you may present to ER or call 911 for help - TIME SPENT Time Spent in Discharge (Minutes): 30
== END 2020-12-26 13:10 | disposition home or self-care (01) ==
LOC: ED 08:00 → MS2 10:32
PROVIDERS: ADMIT Nurse Practitioner Gerontology; ATTEND Nurse Practitioner Gerontology
DX: R55 Syncope and collapse (principal); E86.0 Dehydration; I95.1 Orthostatic hypotension; Z87.891 Personal history of nicotine dependence; G47.30 Sleep apnea, unspecified; Z20.822 Contact with and (suspected) exposure to COVID-19
CPT/HCPCS: 36415; 70450; 71045; 80048; 80053; 83690; 84484; 85025; 87631; 93005; 93306; 93880; 99285; A9270; G0378; 0202U

== ENCOUNTER 2021-01-24 07:53 | Outpatient (CLI) | payer MEDICARE, OTHER ==
--- NOTE | 2021-01-24 09:17 | CARDIAC PROCEDURE NOTE ---
DATE OF SERVICE: 01/24/2021 Physician: Marge Chavira MD, [facility] INDICATION: Dyspnea and presyncope. CARDIAC RISK FACTORS: Male gender, advanced age. PROCEDURE: After signing informed consent, the patient underwent a Cristóbal- protocol treadmill stress test. There was no cardiac imaging ordered with this test. RESTING HEART RATE: 56. PEAK HEART RATE: 145 (90% predicted maximum heart rate for age). RESTING BLOOD PRESSURE: 130/83. PEAK BLOOD PRESSURE: 191/81. The patient exercised for 8 minutes on a Cristóbal-protocol treadmill stress test. He achieved a peak heart rate of 145 (90% PMHR), and 10.12 METs. The patient had no chest pain. The patient had moderate shortness of breath with exercise. At rest, his oxygen saturation was 98% - 99%. Oxygen saturation dropped to 90% when he was the most short of breath, on room air, at peak exercise. The patient's perceived exertion was 19/20 on the Callum scale at peak. Normal heart rate and blood pressure response to exercise. Heart rate had a slow normal increase with exercise and a rapid recovery after exercise. In recovery, the patient had his typical "flash" of dizziness, which correlated with a PVC on telemetry. RESTING EKG: Sinus bradycardia, rate 56, PAC, otherwise within normal limits. EKG AT PEAK: Nonspecific, upsloping ST-segment depressions in leads II, III, aVF, and V2 through V6. IMPRESSION: 1. Normal resting EKG. 2. Good exercise tolerance; by heart rate criteria, the patient is quite fit. 3. Borderline abnormal oxygen saturation at peak exercise with moderate-severe perceived SOB. 4. No ischemic changes by EKG criteria occurred during this exercise test. Normal stress test for CAD evaluation. 5. A brief "flash" of dizziness correlated with a premature ventricular contraction; consider cardiac arrhythmia as the cause of his symptoms. RECOMMENDATIONS: Holter monitor advised. TD: 01/24/2021 08:57 CANDACE
== END 2021-01-24 07:54 | disposition home or self-care (01) ==
LOC: DI 07:53
PROVIDERS: ATTEND Physician Assistant Medical
DX: R55 Syncope and collapse (principal); R06.00 Dyspnea, unspecified; I49.3 Ventricular premature depolarization

== ENCOUNTER 2021-04-06 16:20 | Outpatient (CLI) | payer MEDICARE, OTHER ==
--- NOTE | 2021-04-06 20:54 | XRAY Report ---
PROCEDURE: Finger(s) LT INDICATIONS: SPRAIN OF LEFT THUMB TECHNIQUE: AP hand, 3 views of the first finger(s) acquired. COMPARISON: None FINDINGS: Bones: No fractures or dislocations. No suspicious bony lesions. Degenerative changes are seen throughout, which are worst involving the first carpometacarpal joint a nd the interphalangeal joint of the thumb. Milder degenerative changes are seen elsewhere. Soft tissues: No suspicious soft tissue calcifications. IMPRESSION: No acute plain film abnormality is seen. Degenerative changes are seen. If it would be helpful for clinical management decision making, please consider a dedicated MRI of th e thumb for further evaluation (assuming that there is no contraindication). Reviewed by: Jesse Cortes MD on 04/06/2021 7:52 PM RAOUL Approved by: Jesse Cortes MD on 04/06/2021 7:52 PM RAOUL Station ID: [id number]
== END 2021-04-06 23:59 | disposition home or self-care (01) ==
LOC: DI.S 16:20
PROVIDERS: ATTEND Emergency Medicine
DX: S63.682A Other sprain of left thumb, initial encounter (principal); M19.042 Primary osteoarthritis, left hand

== ENCOUNTER 2021-05-21 09:48 | Outpatient (CLI) | payer MEDICARE, OTHER ==
--- NOTE | 2021-05-21 12:25 | SLEEP CARE CONSULTATION ---
Information from patient questionnaire entered by Nasreen Alvarado. I have reviewed and concur with the information entered by Nasreen Alvarado. This document represents the service I personally performed and the decisions made by , Nichole Byrne ARNP. History of Present Illness Service Date and Time: 05/21/2021 0948 Previous diagnosis: Moderate, Obstructive Sleep Apnea-Hypopnea Syndrome AHI: 28.2 (in 2015) Reason for follow up: other (10 month, Transfer DME) Equipment type: CPAP Equipment obtained from: Other ([facility], wants to change to different DME) Mask style: Full face (sleepweaver, cloth full mask) Backup mask available: Yes (old mask) Last cushion change: 7 months Prior sleep studies: Yes Year and Where: 2015 and 2008 - [facility] HPI additional information: LUCINA PRABHAKAR was diagnosed to have moderate, AHI 28.2, obstructive sleep apnea-hypopnea syndrome and returned today with spouse for CPAP therapy 10 month follow-up, transfer DME. CPAP Compliance Data - Data Reviewed with Patient Average duration of nightly device use: 8 hr 14 min Compliance rate %: 100 (180 days) Current pressure setting (cmH2O): 14-16 Humidity setting: off Heated hose setting: off Average residual AHI: 4.8 Average large leak: 2 hours 47 minutes Subjective Patient concerns: reports: nasal congestion (3-4 times a month). denies: aerophagia, mask discomfort, air blowing in eyes, mask leak noise, condensation in mask/hose, dry mouth, nose, throat, epistaxis, other Observed to snore while using device: No Current pressure setting perceived as: comfortable On therapy, patient: reports: sleeping better, awakening more refreshed, being more awake and alert during the day, more rested overall. denies: drowsiness while driving Initial [place] Sleepiness Scale score: 1 (in 2008) Current [place] Sleepiness Scale score: 0 Allergies and Home Medications Home medication list reviewed: Yes (no new meds) Review of Systems Review of systems same as previous: Yes (no changes) Physical Exam Heart Rate: 60 O2 Saturation: 99 Height: 5 ft 11 in Weight: 216 lb Body Mass Index: 30.1 BMI Classification: Obese Impression and Plan 1. Obstructive Sleep Apnea-Hypopnea Syndrome, moderate, with excellent treatment compliance and good apnea control. On CPAP therapy, the patient has better sleep quality and is more rested overall. Patient would like to change to a new DME company because his current one told him they cannot get the mask he uses unless he pays upfront for them. Patient was informed that another DME can be used. I will have my dental coordinator inform of DME options. A DWO prescription will then be made. Patient advised to contact this office if further supply problems. Patient informed of the recall on the [employer] machines. He was advised to register his machine. He states that he just had his current machine fixed due to a noise in the machine. He may still be eligible to update his machine. The patients CPAP is over 5 years old and of reasonable use. Thus, the CPAP will be updated. A DWO prescription will be made. Compliance guidelines for new device and follow up discussed. Patient voiced understanding and agreement with plan of care. Patient's apnea severity and rationale for treatment to reduce apnea, improve sleep quality and reduce cardiovascular and cerebrovascular events was reviewed. I also reviewed the benefit of consistent device use of CPAP for migraines. * Change auto CPAP pressure at 15-16 cmH2O * Transfer DME * Update machine * Notify me if snoring with mask or feeling that the pressure is too much or too little * Attempt to lose weight * Call this office if any problems using CPAP * Return for follow up one month after obtaining new machine, or sooner if concerns arise Counseling Topics: Spare mask, Weight loss health impact Visit Type: In Office Time Spent with Patient (minutes): 21 Provider Statement: I spent 100% of the Face to Face Visit with the patient with greater than 50% spent counseling the patient and coordination of care.
== END 2021-05-21 09:49 | disposition home or self-care (01) ==
LOC: SC 09:48
PROVIDERS: ATTEND Nurse Practitioner Family
DX: G47.33 Obstructive sleep apnea (adult) (pediatric) (principal); E66.9 Obesity, unspecified; Z68.30 Body mass index [BMI] 30.0-30.9, adult
CPT/HCPCS: 99213; G0463; 99212

== ENCOUNTER 2021-08-02 21:31 | Emergency (ER) | payer MEDICARE, OTHER ==
--- NOTE | 2021-08-02 22:37 | ED Physician Documentation ---
PD HPI DYSPNEA - Stated complaint Stated Complaint: SOA, SWOLLEN GLANDS - Chief complaint Chief Complaint: Resp - History obtained from History obtained from: Patient - History of Present Illness Timing - onset: How many days ago (1-2) Timing - details: Gradual onset, Waxing and waning Pain level now: 1 Improved by: Other (no ameliorating factors) Worsened by: Other (no exacerbating factors) Associated symptoms: Cough, Chest pain / discomfort. No: Fever, Hemoptysis, Wheezing, Palpitations, Bilateral edema, Unilateral edema Similar symptoms before: Has not had sx before - Additional information Additional information: patient c/o 1-2 days of anterior chest tightness with mild dyspnea, mild [employer] cough, and several days of sensation of swollen glands (per patient) of neck. He denies fever. He is not COVID vaccinated. He describes an outpatient w/u that included holter monitor and treadmill stress tests within the past year (due to episodes of syncope); he says the w/u was reassuring and without concerning findings. Review of Systems Constitutional: reports: Reviewed and negative Cardiac: reports: Chest pain / pressure. denies: Palpitations, Pedal edema Respiratory: reports: Dyspnea, Cough. denies: Hemoptysis, Wheezing GI: reports: Reviewed and negative : denies: Dysuria, Frequency Musculoskeletal: reports: Reviewed and negative PD PAST MEDICAL HISTORY - Past Medical History Cardiovascular: None Respiratory: Sleep apnea Neuro: None Endocrine/Autoimmune: None GI: None : None Psych: Depression Musculoskeletal: Chronic back pain Derm: Other - Past Surgical History Past Surgical History: Yes General: Colonoscopy Ortho: Other Derm: Skin cancer surgery - Present Medications Home Medications: Ambulatory Orders Medication Instructions Recorded Confirmed No Known Home Medications 12/25/20 08/02/21 - Allergies Allergies/Adverse Reactions: Allergies Allergy/AdvReac Type Severity Reaction Status Date / Time No Known Drug Allergies Allergy Verified 08/02/21 21:52 - Social History Does the pt smoke?: No Smoking Status: Never smoker Does the pt drink ETOH?: No Does the pt have substance abuse?: No - Immunizations Immunizations are current?: Yes Immunizations: TDAP current <10years - POLST Patient has POLST: No PD ED PE NORMAL - Vitals Vital signs reviewed: Yes - General General: Alert and oriented X 3, No acute distress, Well developed/nourished - HEENT HEENT: Moist mucous membranes - Neck Neck: Supple, no meningeal sign - Cardiac Cardiac: RRR, No murmur, No gallop, No rub - Respiratory Respiratory: No respiratory distress, Clear bilaterally - Abdomen Abdomen: Soft, Non tender - Derm Derm: Normal color, Warm and dry - Extremities Extremities: No edema Results - Vitals Vitals: Oxygen O2 Source Room air - EKG (time done) No standard instances Rate: Rate (enter#) (55) Rhythm: NSR [place]: Normal Intervals: Normal UT QRS: Normal Ischemia: Normal ST segments - Labs Labs: Laboratory Tests 08/02/21 08/02/21 08/02/21 23:10 23:20 23:20 WBC 5.8 RBC 4.54 L Hgb 14.3 Hct 42.4 MCV 93.4 MCH 31.5 H MCHC 33.7 RDW 13.1 Plt Count 184 MPV 10.0 Neut # (Auto) 3.7 Lymph # (Auto) 1.5 [place] # (Auto) 0.4 Eos # (Auto) 0.1 Baso # (Auto) 0.0 Absolute Nucleated RBC 0.00 Nucleated RBC % 0.0 D-Dimer Sodium 144 Potassium 4.1 Chloride 109 Carbon Dioxide 25 Anion Gap 10.0 BUN 18 Creatinine 0.9 Estimated GFR (MDRD) 83 L Glucose 104 H Calcium 9.4 Total Bilirubin 0.6 AST 18 ALT 15 Alkaline Phosphatase 69 Troponin I High Sens Total Protein 6.6 L Albumin 3.8 Globulin 2.8 Albumin/Globulin Ratio 1.4 Lipase 49 Nasal Adenovirus (PCR) NOT DETECTED Nasal B. parapertussis DNA (PCR) NOT DETECTED Nasal Coronavir 229E PCR NOT DETECTED Nasal Coronavir HKU1 PCR NOT DETECTED Nasal Coronavir NL63 PCR NOT DETECTED Nasal Coronavir OC43 PCR NOT DETECTED Nasal Enterovir/Rhinovir PCR NOT DETECTED Nasal Influenza B PCR NOT DETECTED Nasal Influenza A PCR NOT DETECTED Nasal Parainfluen 1 PCR NOT DETECTED Nasal Parainfluen 2 PCR NOT DETECTED Nasal Parainfluen 3 PCR NOT DETECTED Nasal Parainfluen 4 PCR NOT DETECTED Nasal RSV (PCR) NOT DETECTED Nasal B.pertussis DNA PCR NOT DETECTED Nasal C.pneumoniae (PCR) NOT DETECTED Hector Human Metapneumo PCR NOT DETECTED Nasal M.pneumoniae (PCR) NOT DETECTED Nasal SARS-CoV-2 (PCR) NOT DETECTED 08/02/21 08/02/21 23:20 23:20 WBC RBC Hgb Hct MCV MCH MCHC RDW Plt Count MPV Neut # (Auto) Lymph # (Auto) [place] # (Auto) Eos # (Auto) Baso # (Auto) Absolute Nucleated RBC Nucleated RBC % D-Dimer 234.9 Sodium Potassium Chloride Carbon Dioxide Anion Gap BUN Creatinine Estimated GFR (MDRD) Glucose Calcium Total Bilirubin AST ALT Alkaline Phosphatase Troponin I High Sens 3.2 Total Protein Albumin Globulin Albumin/Globulin Ratio Lipase Nasal Adenovirus (PCR) Nasal B. parapertussis DNA (PCR) Nasal Coronavir 229E PCR Nasal Coronavir HKU1 PCR Nasal Coronavir NL63 PCR Nasal Coronavir OC43 PCR Nasal Enterovir/Rhinovir PCR Nasal Influenza B PCR Nasal Influenza A PCR Nasal Parainfluen 1 PCR Nasal Parainfluen 2 PCR Nasal Parainfluen 3 PCR Nasal Parainfluen 4 PCR Nasal RSV (PCR) Nasal B.pertussis DNA PCR Nasal C.pneumoniae (PCR) Hector Human Metapneumo PCR Nasal M.pneumoniae (PCR) Nasal SARS-CoV-2 (PCR) - Rads (name of study) chest xray Radiology: Prelim report reviewed, See rad report PD MEDICAL DECISION MAKING - ED course Complexity details: reviewed results, re-evaluated patient, considered differential, d/w patient ED course: chest tightness with mild dyspnea and nonproductive cough x 1-2 days. Unremarkable testing tonight including EKG, blood tests including troponin and d-dimer. Results reviewed with patient, given return precautions, and encouraged to follow up with PMD to see if further testing is needed as well as to discuss considering getting COVID vaccination. Departure - Departure Disposition: 01 Home, Self Care Clinical Impression: Chest pain Qualifiers: Chest pain type: unspecified Qualified Code(s): R07.9 - Chest pain, unspecified Condition: Good Instructions: ED Chest Pain Atypical Unkn Cause Follow-Up: Jon Boss MD [Primary Care Provider] - Within 1 week Discharge Date/Time: 08/03/21 00:53
[2021-08-02 23:26] LABS: BASOPHILS % (AUTO) 0.7 %; EOSINOPHILS # (AUTO) 0.1 10^3/uL (0.0-0.7); EOSINOPHILS % (AUTO) 1.7 %; HCT - HEMATOCRIT 42.4 % (42.0-52.0); HGB - HEMOGLOBIN 14.3 g/dL (14.0-18.0); LYMPHOCYTES # (AUTO) 1.5 10^3/uL (1.5-3.5); LYMPHOCYTES % (AUTO) 25.7 %; MEAN CORPUSCULAR HEMOGLOBIN 31.5 pg (27.0-31.0); MEAN CORPUSCULAR HGB CONC 33.7 g/dL (32.0-36.0); MEAN CORPUSCULAR VOLUME 93.4 fL (80.0-94.0); MONOCYTES # (AUTO) 0.4 10^3/uL (0.0-1.0); MONOCYTES % (AUTO) 7.3 %; NEUTROPHILS # (AUTO) 3.7 10^3/uL (1.5-6.6); NEUTROPHILS % (AUTO) 63.9 %; PLT - PLATELET COUNT 184 10^3/uL (130-450); RED BLOOD COUNT 4.54 10^6/uL (4.70-6.10); RED CELL DISTRIBUTION WIDTH 13.1 % (12.0-15.0); WHITE BLOOD COUNT 5.8 x10^3/uL (4.8-10.8)
[2021-08-02 23:38] LABS: ALBUMIN 3.8 g/dL (3.2-5.5); ALBUMIN/GLOBULIN RATIO 1.4 (1.0-2.2); BILIRUBIN,TOTAL 0.6 mg/dL (0.2-1.0); CALCIUM 9.4 mg/dL (8.5-10.3); CREATININE 0.9 mg/dL (0.6-1.2); POTASSIUM 4.1 mmol/L (3.5-5.0); TOTAL PROTEIN 6.6 g/dL (6.7-8.2)
--- NOTE | 2021-08-03 00:01 | XRAY Report ---
PROCEDURE: Chest 2 View X-Ray INDICATIONS: chest pain, dyspnea TECHNIQUE: 2 view(s) of the chest. COMPARISON: 12/25/2020 FINDINGS: Surgical changes and devices: None. Lungs and pleura: No pleural effusions or pneumothorax. Lungs are clear. Mediastinum: Mediastinal contours are normal. Heart size is normal. Bones and chest wall: No suspicious bony abnormalities. Degenerative endplate spurring and osteophyt osis throughout the thoracic spine. Soft tissues appear unremarkable. IMPRESSION: 1. Stable chest without radiographic evidence of acute cardiac pulmonary disease. 2. Degeneration of the spine. Reviewed by: Merna Johnson MD on 08/03/2021 12:00 AM PDT Approved by: Merna Johnson MD on 08/03/2021 12:00 AM PDT Station ID: [id number]
[2021-08-03 00:03] VITALS: BP 130/73
[2021-08-03 00:17] LABS: B. PARAPERTUSSIS- RESP PCR PAN NOT DETECTED; B. PERTUSSIS- RESP PCR PANEL NOT DETECTED; C. PNEUMONIAE- RESP PCR PANEL NOT DETECTED; CORONAVIRUS 229E-RESP PCR NOT DETECTED; CORONAVIRUS HKU1-RESP PCR NOT DETECTED; CORONAVIRUS NL63-RESP PCR NOT DETECTED; CORONAVIRUS OC43-RESP PCR NOT DETECTED; HUMAN METAPNEUMOVIRUS NOT DETECTED; INFLUENZA A- RESP PCR PANEL NOT DETECTED; INFLUENZA B - RESP PCR PANEL NOT DETECTED; M. PNEUMONIAE- RESP PCR PANEL NOT DETECTED; PARAINFLUENZA VIRUS 1 NOT DETECTED; PARAINFLUENZA VIRUS 2 NOT DETECTED; PARAINFLUENZA VIRUS 3 NOT DETECTED; PARAINFLUENZA VIRUS 4 NOT DETECTED; RHINOVIRUS/ENTEROVIRUS NOT DETECTED; RSV- RESP PCR PANEL NOT DETECTED; SARS-CoV-2 -RESP PCR PANEL NOT DETECTED
== END 2021-08-03 00:53 | disposition home or self-care (01) ==
LOC: ED 21:31
DX: R07.89 Other chest pain (principal); Z20.822 Contact with and (suspected) exposure to COVID-19
CPT/HCPCS: 0202U; 36415; 80053; 83690; 84484; 85025; 85379; 93005; 99284

== ENCOUNTER 2023-06-29 13:09 | Outpatient (CLI) | payer MEDICARE, OTHER ==
--- NOTE | 2023-06-29 22:34 | SLEEP CARE CONSULTATION ---
Information from patient questionnaire entered by Jaime Anand. I have reviewed and concur with the information entered by Jaime Anand. This document represents the service I personally performed and the decisions made by me, Sarah Gaspar MD, [facility]. History of Present Illness Service Date and Time: 06/29/2023 1309 Reason for Visit: New patient Prior sleep studies: Yes Year and Where: 2015 and 2008 - formerly [facility] Additional HPI information: Mr. Cunningham was diagnosed to have moderate obstructive sleep apnea-hypopnea syndrome and returns today for follow up of CPAP therapy. The patient purchased the device from [employer]. and was fitted with a Sleepweaver full face mask. He uses the device nightly and all through the night. The compliance report shows that he uses the device 179 nights out of the past 180 nights, averaging 8.2 hours a night. He complains of no particular problem with the device such as soreness on the face, dry nose, epistaxis, nasal congestion or headache. He thinks that the pressure of 14 - 16 cmH2O is comfortable. On the CPAP therapy he notices improvement in his sleep quality, and that he wakes up feeling fresher in the morning and more awake/alert during the day. His notices no snore at all. [place] Sleepiness Scale score is 0. The average residual AHI is 3.7 but higher that last two months; and average air leak is 20 L/minute. The 90th percentile pressure is 14.3 cmH2O. CPAP Compliance Data - Data Reviewed with Patient Average duration of nightly device use: 8HRS 14MINS Compliance rate %: 98 (12/30/22-06/27/23) Current pressure setting (cmH2O): 14-16 Average residual AHI: 3.7 Subjective Initial [place] Sleepiness Scale score: 1 (in 2008) Current [place] Sleepiness Scale score: 0 (06/29/23) Social History The patient's occupation is a [employer]. Patient is and lives in [place]. Allergies and Home Medications Drug allergies reviewed: Yes Home medication list reviewed: Yes Allergy and home medication list: Allergies No Known Drug Allergies Allergy (Verified 06/26/23 15:34) Review of Systems Review of systems same as previous: Yes Physical Exam Vital signs obtained and entered by: JAIME Edge MA Blood Pressure: 110/70 (LEFT ARM) Cuff size: regular Heart Rate: 54 O2 Saturation: 99 Height: 5 ft 11 in Weight: 205 lb 6.4 oz Body Mass Index: 28.6 BMI Classification: Overweight Impression and Plan IMPRESSION: 1. Obstructive Sleep Apnea-Hypopnea Syndrome, moderate, with the patient continuing to do well on nasal CPAP therapy. He has excellent compliance and significant clinical benefits. The current pressure appears effective and comfortable. Overall, he is very satisfied with treatment and plans to continue with it long-term. Because the residual AHI is rising the last two months, I will raise the pressure a little. PLAN: 1. AutoCPAP increased to 16 - 18 cm H2O via the modem. 2. Return in one month for follow up or earlier if there is any problem with the treatment. Follow up with Sleep Care in: 1-2 months Visit Type: In Office Other Participants: Spouse/Significant Other Time Spent with Patient (minutes): 15 Provider Statement: I spent 100% of the Face to Face Visit with the patient with greater than 50% spent counseling the patient and coordination of care.
[2023-06-29 22:36] VITALS: BP 110/70; O2SAT 99
== END 2023-06-29 13:10 | disposition home or self-care (01) ==
LOC: SC 13:09
PROVIDERS: ATTEND Internal Medicine Pulmonary Disease
DX: G47.33 Obstructive sleep apnea (adult) (pediatric) (principal); E66.3 Overweight; Z68.28 Body mass index [BMI] 28.0-28.9, adult
CPT/HCPCS: 99212; G0463

== ENCOUNTER 2023-10-06 10:09 | Outpatient (CLI) | payer MEDICARE, OTHER ==
--- NOTE | 2023-10-06 13:12 | XRAY Report ---
PROCEDURE: Lumbar Spine 2 View INDICATIONS: LUMBAR PAIN TECHNIQUE: 3 views of the lumbar spine were acquired. COMPARISON: Lumbar spine plain films dated 09/21/2014. FINDINGS: Bones: 5 [id number] vertebrae are present. There is normal bony alignment. No vertebral body compression fractures. No suspicious bony lesions. Multilevel degenerative disc space loss. Lower l umbar facet arthropathy. Suspect canal stenosis. Soft tissues: Overlying bowel gas pattern is normal. No suspicious soft tissue calcifications. IMPRESSION: 1. No acute bony abnormality. 2. Degenerative change, most significantly in the lower lumbar region. 3. Suspect canal stenosis. Comment: Lumbar spine MRI may be helpful. Reviewed by: Wilver Cabrera MD on 10/06/2023 1:11 PM PST Approved by: Wilver Cabrera MD on 10/06/2023 1:11 PM PST Station ID: [id number]
== END 2023-10-06 10:10 | disposition home or self-care (01) ==
LOC: DI 10:09
PROVIDERS: ATTEND Student in an Organized Health Care Education/Training Program
DX: M47.816 Spondylosis without myelopathy or radiculopathy, lumbar region (principal)

== ENCOUNTER 2024-01-26 06:34 | Outpatient (CLI) | payer MEDICARE, OTHER ==
--- NOTE | 2024-01-26 13:56 | Ultrasound Report ---
PROCEDURE: Duplex Ext Veins Left INDICATIONS: CELLULITIS L ARM, SWELLING L ARM TECHNIQUE: Real-time imaging, as well as color and pulse Doppler interrogation, were performed of the lower extr emity deep veins from the inguinal ligament to the popliteal fossa. Attempted visualization of the ca lf veins was performed. COMPARISON: None. FINDINGS: The deep veins are normally compressible, and free of intraluminal thrombus. Color and pu lse Doppler demonstrate normal phasic intraluminal flow. There is normal augmentation response to di stal compression maneuver. No sonographic evidence of superficial venous thrombosis. Targeted ultrasound of the distal upper arm at the palpable lump demonstrates no mass, fluid collection or sonographic abnormality. IMPRESSION: 1.No deep venous thrombosis of the visualized left upper extremity. 2.Targeted ultrasound of the distal upper arm at the palpable lump demonstrates no mass, fluid collec tion or sonographic abnormality. Reviewed by: Moses Castanon MD on 01/26/2024 1:54 PM PDT Approved by: Moses Castanon MD on 01/26/2024 1:54 PM PDT Station ID: [id number]
== END 2024-01-26 06:35 | disposition home or self-care (01) ==
LOC: DI 06:34
PROVIDERS: ATTEND Registered Nurse
DX: L03.114 Cellulitis of left upper limb (principal); R22.32 Localized swelling, mass and lump, left upper limb

== ENCOUNTER 2024-02-15 13:06 | Outpatient (CLI) | payer MEDICARE, OTHER ==
--- NOTE | 2024-02-15 13:36 | XRAY Report ---
PROCEDURE: Cervical Spine 2-3V INDICATIONS: CERVICALGIA TECHNIQUE: 3 view(s) of the cervical spine were acquired. COMPARISON: None. FINDINGS: Bones: No fractures or dislocations to the T1 level. The lateral masses of C1 appear intact on the odontoid view. No suspicious bony lesions. Severe cervical spondylosis. Chronic disc height loss and uncovertebral joint osteophyte formation at C3-C4, C4-C5, and C5-C6. Multilevel facet arthropathy. Soft tissues: No prevertebral soft tissue swelling. IMPRESSION: Severe cervical spondylosis. Reviewed by: Wilver Cabrera MD on 02/15/2024 1:34 PM PDT Approved by: Wilver Cabrera MD on 02/15/2024 1:34 PM PDT Station ID: [id number]
== END 2024-02-15 13:07 | disposition home or self-care (01) ==
LOC: DI 13:06
PROVIDERS: ATTEND Nurse Practitioner Family
DX: M47.812 Spondylosis without myelopathy or radiculopathy, cervical region (principal)

== ENCOUNTER 2024-06-21 14:15 | Outpatient (CLI) | payer MEDICARE, OTHER | END 2024-06-21 14:16 | disposition home or self-care (01) | LOC: LAB.R 14:15 | PROVIDERS: ATTEND Nurse Practitioner | DX: B35.1 Tinea unguium (principal) | CPT/HCPCS: 87101 ==